=== PATIENT | female | born 1990 | race American Indian/Alaskan Native ===

== ENCOUNTER 2021-02-05 11:22 | Emergency (ER) | payer OTHER ==
[~2021-02-05] VITALS: Ht 165.1 cm; Wt 90.7 kg
[~2021-02-05 11:22] MED LIST: PRENATAL MULTI1 EACH PO
[2021-02-05] MEDS ORDERED: FLONASE ALLERG9.9 ML NAS (11:34)
[2021-02-05] MEDS ORDERED: ALLEGRA-D 12 H1 EACH PO (11:35)
== END 2021-02-05 14:18 | disposition home or self-care (01) ==
LOC: ED 11:22
DX: S50.01XA Contusion of right elbow, initial encounter (principal); W22.8XXA Striking against or struck by other objects, initial encounter
CPT/HCPCS: 73080; 99283-25

== ENCOUNTER 2022-10-10 13:06 | Emergency (ER) | payer OTHER ==
[~2022-10-10] VITALS: Ht 165.1 cm; Wt 90.7 kg
[~2022-10-10 13:06] MED LIST changes: +ALLEGRA-D 12 H1 EACH PO; +FLONASE ALLERG9.9 ML NAS
== END 2022-10-10 14:26 | disposition home or self-care (01) ==
LOC: ED 13:06
DX: O9A.213 Injury, poisoning and certain other consequences of external causes complicating pregnancy, third trimester (principal); T75.89XA Other specified effects of external causes, initial encounter; Z3A.29 29 weeks gestation of pregnancy
CPT/HCPCS: 59025; 99282

== ENCOUNTER 2022-12-05 16:47 | Inpatient (IN) | payer OTHER ==
[~2022-12-05] VITALS: Ht 163.8 cm; Wt 107.5 kg
--- NOTE | ~2022-12-05 | OR ---
[facility] [address] [place], [place] [address] Draft DATE OF OPERATION: 12/06/2022 SURGEON: Solo Sifuentes DO PROCEDURE: Primary low-transverse section and cystoscopy. G[employer]ION [employer]ANT OPERATOR: Leonardo Villegas MD. PREOPERATIVE DIAGNOSES: Non-reassuring heart tones, intolerance to labor, preeclampsia, history of preeclampsia with severe features, 38 weeks gestation. POSTOPERATIVE DIAGNOSES: Term , delivered occiput posterior position, preeclampsia, history of preeclampsia with severe features. ANESTHESIA: Spinal. BLOOD LOSS: 650 mL. COMPLICATION: Uterine extension requiring cystoscopy. FINDINGS: Viable term male in the left occiput posterior in the flexed position and 7 pounds 1 ounce with Apgars of 2, 8 and 8 at 1, 5 and 10 minutes respectively. Normal-appearing bilateral tubes and ovaries. Bladder intact. No injury to the dome. Bubble present. Bilateral ureteral efflux visualized. INDICATIONS: The patient is a 32-year-old, G3, P0-1-1-1 at 38 weeks gestation. She was admitted at 37 and 6 weeks gestation with gestational hypertension. Admission labs were significant for preeclampsia with a protein creatinine ratio of 0.33. She was cesia regularly, received an epidural for pain management. Amniotomy was performed yielding large amount of clear fluid. After that time, she continued to make progress but began having variable and occasional late heart rate decelerations. Numerous attempts PATIENT NAME: FLASH ZIMMERMANSONAL Martinez OPERATIVE REPORT DATE OF : [birth year] REPORT #: [id number] PHYSICIAN: SOLO SIFUENTES DO PCP: [facility] REPORT IS CONFIDENTIAL AND NOT TO BE RELEASED WITHOUT AUTHORIZATION [facility] [address] [place], [place] [address] Draft were made repositioning with intermittent improvement in heart rate status until she reached 9 cm after which she failed continued dilate and status once again became non-reassuring. Risks, benefits, alternatives of the delivery were discussed and patient elected to proceed. PROCEDURE IN DETAIL: The patient was given 2 g Ancef IV and 500 mg azithromycin IV, was taken back to the operating room. Epidural catheter was removed. Spinal anesthesia was placed. Internal monitors were removed. She was prepped and draped in normal sterile fashion. Lugo catheter was already in place. Adequate anesthesia was confirmed. A Pfannenstiel incision was made with a scalpel and carried down to the underlying layer of fascia with Bovie cautery. Fascia was nicked in midline, extended laterally with Callejas scissors. Inferior margin of fascia was grasped and elevated with Jessie clamps. Underlying rectus muscles dissected off bluntly and sharply with Callejas scissors. Inferior margin was released. Jessie clamps used to grasp the superior margin of fascia which was elevated and underlying rectus muscle was dissected off bluntly and sharply with Callejas scissors. Superior margin was released. The peritoneum was entered bluntly and peritoneal incision was extended laterally with blunt traction. Shaun retractor was placed. Hysterotomy was made with a scalpel. Uterus was entered bluntly, digitally and hysterotomy was extended laterally with gentle, digital, superior and inferior traction. 's head was noted to be in the occiput posterior position in a deflexed manner and was elevated with significant difficulty to the level of hysterotomy requiring an office assistant to elevate the head vaginally to allow for delivery of the head through the hysterotomy. Anterior posterior shoulder delivered easily along with remainder of the infant's body, which upon delivery cord was immediately clamped and cut. Baby was handed to waiting nursery team including appliance repairer respiratory therapist present in OR for resuscitation. Cord gases were collected and cord blood was collected for type and Joe. Placenta was manually extracted and submitted for pathology. Uterus was cleared of clots and debris. Bilateral extensions of the hysterotomy were noted. Right extension was repaired with 0 Vicryl in a running locked fashion with excellent visualization the entire time. Left extension was similarly repaired with 0 Vicryl in a running locked fashion with excellent visualization. Hysterotomy was then closed with 0 Monocryl in a double-layer closure first in a running locked fashion. Secondly, in an imbricating manner starting at the extension, the left extension working around to the right extension following imbrication. Excellent hemostasis was noted. Pelvis was suction irrigated. Trisha hemostatic agent was applied to the raw peritoneal surface at each apex. Shaun retractor was removed. Peritoneum was closed in a running fashion with 2-0 Vicryl. Rectus muscle was reapproximated at midline with 0 Vicryl in simple interrupted manner x3. Rectus muscle was suction irrigated with warm sterile saline. Perforating vessels were cauterized with Bovie cautery. Fascia was closed with 0 Vicryl in a running fashion working first from right apex to midline and from left apex to midline meeting in the middle with excellent hemostasis and reapproximation noted. PATIENT NAME: KERRY ZIMMERMAN OPERATIVE REPORT DATE OF : [birth year] REPORT #: [id number] PHYSICIAN: SOLO SIFUENTES DO PCP: [facility] REPORT IS CONFIDENTIAL AND NOT TO BE RELEASED WITHOUT AUTHORIZATION [address], [place] [address] Draft Subcutaneous layer was suction irrigated with warm sterile saline. Perforating vessels were cauterized with Bovie cautery and subcutaneous layer was reapproximated with 3-0 Vicryl in a running fashion. Skin was closed with skin clips. Sponge and instrument counts were correct x2 and attention was turned to cystoscopy. The patient was positioned in a frog-leg position. Lugo catheter was removed. Betadine was used to prep the urethra and flexible cystoscope was inserted without difficulty. Bladder was surveyed with normal findings as noted above, including intact dome and trigone and bilateral ureteral efflux. Cystoscope was removed. Lugo catheter was replaced. Uterus was Crede'd and noted to be very firm and free of clots consistent with having received TXA 1 g shortly after time of delivery. The patient remained in the OR for completion of tap blocks and baby remained in the OR with mother. DO FRANCIA Kelley/ELINA /[id number] Copies: ~ PATIENT NAME: KERRY ZIMMERMAN OPERATIVE REPORT DATE OF : [birth year] REPORT #: [id number] PHYSICIAN: SOLO SIFUENTES DO PCP: [facility] REPORT IS CONFIDENTIAL AND NOT TO BE RELEASED WITHOUT AUTHORIZATION
--- NOTE | 2022-12-05 21:55 | PR ---
[facility] [address] [facility] [place], [place] [address] Signed Progress Notes IP Datetime Report Generated by CPN: 12/05/2022 21:55 PROGRESS NOTES: [id number] Impression: Reassuring Heart Rate Procedures: Artificial ROM; Sterile Vag Exam Plan: Continue Present Management VITAL SIGNS: [id number] EXAM: [id number] Dilatation: 4.0 Effacement: 85 Station: -2 Contractions: not yet tracing MEMBRANES: [id number] Membranes Status: Ruptured Comments: Mostly comfortable with epidural, small window in left lower abdomen where she is feeling contractions AROM as noted - plan recheck in 2h or sooner if indicated. Discussed if no cervical change after 2h then may recommend low-dose pitocin FETUS A: [id number] FHR Baseline: 130 Variability: Moderate 6-25bpm Accelerations: 15X15 Decelerations: None FHR Category: Category I Presentation: Vertex Comments on Fetus A: No evidence of acidemia FETUS B: [id number] Signing Physician: Solo Sifuentes DO Copies: ~ *Electronically Signed* 12/05/22 2155 SOLO SIFUENTES DO PATIENT NAME: KERRY ZIMMERMAN PROGRESS NOTE DATE OF : [birth year] PHYSICIAN: SOLO SIFUENTES DO RPT #: [id number] REPORT IS CONFIDENTIAL AND NOT TO BE RELEASED WITHOUT AUTHORIZATION
--- NOTE | 2022-12-05 23:15 | PR ---
[facility] [address] [place], [place] [address] Signed Progress Notes IP Datetime Report Generated by CPN: 12/05/2022 23:15 PROGRESS NOTES: [id number] Impression: Normal Progression of Labor Procedures: Intrauterine Pressure Catheter; Scalp Electrode; Sterile Vag Exam Plan: Anticipate Vaginal Delivery VITAL SIGNS: [id number] EXAM: [id number] Dilatation: 6.0 Effacement: 95 Station: -2 Contractions: not yet tracing MEMBRANES: [id number] Membranes Status: Ruptured Comments: Risks, benefits, alternatives to internal monitors discussed with Pt and FOB, at bedside, and they elected to proceed. IUPC and FSE placed without difficulty. Bloody show noted, consistent with labor progress. Pt repositioned to high fowlers. FETUS A: [id number] FHR Baseline: 130 Variability: Moderate 6-25bpm Accelerations: 15X15 Decelerations: None FHR Category: Category I Presentation: Vertex Comments on Fetus A: No evidence of acidemia FETUS B: [id number] Signing Physician: Solo Sifuentes DO Copies: ~ *Electronically Signed* 12/05/22 2296 SOLO SIFUENTES DO PATIENT NAME: KERRY ZIMMERMAN PROGRESS NOTE DATE OF : [birth year] PHYSICIAN: SOLO SIFUENTES DO RPT #: [id number] REPORT IS CONFIDENTIAL AND NOT TO BE RELEASED WITHOUT AUTHORIZATION
--- NOTE | 2022-12-06 00:15 | PR ---
[facility] [address] [place], [place] [address] Signed Progress Notes IP Datetime Report Generated by CPN: 12/06/2022 00:15 PROGRESS NOTES: [id number] Impression: Normal Progression of Labor Procedures: Intrauterine Pressure Catheter; Scalp Electrode; Sterile Vag Exam Plan: Anticipate Vaginal Delivery VITAL SIGNS: [id number] EXAM: [id number] Dilatation: 8.0 Effacement: 95 Station: -2 Contractions: not yet tracing MEMBRANES: [id number] Membranes Status: Ruptured Comments: Risks, benefits, alternatives to internal monitors discussed with Pt and FOB, at bedside, and they elected to proceed. IUPC and FSE placed without difficulty. Bloody show noted, consistent with labor progress. Pt repositioned to high fowlers. FETUS A: [id number] FHR Baseline: 130 Variability: Moderate 6-25bpm Accelerations: 15X15 Decelerations: None FHR Category: Category I Presentation: Vertex Comments on Fetus A: No evidence of acidemia FETUS B: [id number] Signing Physician: Solo Sifuentes DO Copies: ~ *Electronically Signed* 12/06/22 0015 SOLO SIFUENTES DO PATIENT NAME: KERRY ZIMMERMAN PROGRESS NOTE DATE OF : [birth year] PHYSICIAN: SOLO SIFUENTES DO RPT #: [id number] REPORT IS CONFIDENTIAL AND NOT TO BE RELEASED WITHOUT AUTHORIZATION
--- NOTE | 2022-12-06 02:44 | PR ---
[facility] [address] [facility] [place], [place] [address] Signed Progress Notes IP Datetime Report Generated by CPN: 12/06/2022 02:44 PROGRESS NOTES: [id number] Impression: Normal Progression of Labor Procedures: Intrauterine Pressure Catheter; Scalp Electrode; Sterile Vag Exam Plan: Anticipate Vaginal Delivery VITAL SIGNS: [id number] EXAM: [id number] Dilatation: 9.0 Effacement: 90 Station: -2 Contractions: not yet tracing MEMBRANES: [id number] Membranes Status: Ruptured Comments: Continuing to progress Continue repositioning as needed FETUS A: [id number] FHR Baseline: 130 Variability: Moderate 6-25bpm Accelerations: 15X15 Decelerations: None FHR Category: Category I Presentation: Vertex Comments on Fetus A: No evidence of acidemia FETUS B: [id number] Signing Physician: Solo Sifuentes DO Copies: ~ *Electronically Signed* 12/06/22 0244 SOLO SIFUENTES DO PATIENT NAME: KERRY ZIMMERMAN PROGRESS NOTE DATE OF : [birth year] PHYSICIAN: SOLO SIFUENTES DO [facility] #: [id number] REPORT IS CONFIDENTIAL AND NOT TO BE RELEASED WITHOUT AUTHORIZATION
--- NOTE | 2022-12-06 05:01 | PR ---
[facility] [address] [place], [place] [address] Signed Progress Notes IP Datetime Report Generated by KRANTHI: 12/06/2022 05:01 PROGRESS NOTES: [id number] Impression: Normal Progression of Labor Procedures: Intrauterine Pressure Catheter; Scalp Electrode; Sterile Vag Exam Plan: Anticipate Vaginal Delivery VITAL SIGNS: [id number] EXAM: [id number] Dilatation: 9.0 Effacement: 90 Station: -1 Contractions: not yet tracing MEMBRANES: [id number] Membranes Status: Ruptured Comments: Reviewed labor course with pt; cervix is beginning to feel edematous, contractions are not adequate, but starting pitocin is not appropriate with category 2 strip. Risks, benefits, alternatives to were discussed at length including need for TOLAC referral or repeat here. Initially discussed pitocin, then variable decelerations resumed. delivery recommended for nonreassuring heart tones. FETUS A: [id number] FHR Baseline: 130 Variability: Moderate 6-25bpm Accelerations: 15X15 Decelerations: None FHR Category: Category I Presentation: Vertex Comments on Fetus A: No evidence of acidemia FETUS B: [id number] Signing Physician: Solo Sifuentes DO Copies: ~ *Electronically Signed* 12/06/22 0501 SOLO SIFUENTES DO PATIENT NAME: KERRY ZIMMERMAN PROGRESS NOTE DATE OF : [birth year] PHYSICIAN: SOLO SIFUENTES DO RPT #: [id number] REPORT IS CONFIDENTIAL AND NOT TO BE RELEASED WITHOUT AUTHORIZATION
--- NOTE | 2022-12-07 11:09 | PR ---
[facility] [address] [place], [place] [address] Signed PP Progress Notes Datetime Report Generated by KRANTHI: 12/07/2022 11:09 SUBJECTIVE: [id number] Pain: Within Normal Limits Nausea/Vomiting: Denies Flatus: Yes Bowel Movement: No Vital Signs: [id number] Vital Signs: Reviewed; Within Normal Limits Cardiovascular: Normal Respiratory: Normal Abdomen/Uterus: Normal Lochia: Normal Extremities: Normal Incision: Normal Progress: Normal Exam Comments: Sitting up in bed NAD RRR No dyspnea/ retractions Abd:SNTND, FFBU Incision: dressing in place, no strikethrough Ext: 2+ BLLE, SCDs on and squeezing IMPRESSION/PLAN/PROCEDURES: [id number] Impression: Normal Progression Plan: Continue Present Management Progress Notes: Pt is a 32 yo POD#1 s/p PLTCS -WBC 28.9 from 19.0 on admission; recheck in 12h. Afebrile. -admitted for MIOL for gHTN; PC ratio 0.33 on admission. No severe features, normotensive since midnight, now diuresing well -postop nausea/vomiting now resolved -oconnell removed, +spontaneous void x 2 Progressing well postop. Plan repeat CBC for leukocytosis, as above. Anticipate continued diuresis. Pt to notify RN if feeling feverish/ chills. Continue postop/ care. Anticipate possible DC to home tomorrow, otherwise Thursday. Signing Physician: Solo Sifuentes DO *Electronically Signed* 12/07/22 1109 SOLO SIFUENTES DO PATIENT NAME: KERRY ZIMMERMAN PROGRESS NOTE DATE OF : [birth year] PHYSICIAN: SOLO SIFUENTES DO RPT #: [id number] REPORT IS CONFIDENTIAL AND NOT TO BE RELEASED WITHOUT AUTHORIZATION [facility] [address] [address] [place], [place] [address] Signed Copies: ~ *Electronically Signed* 12/07/221108 SOLO SIFUENTES DO PATIENT NAME: KERRY ZIMMERMAN PROGRESS NOTE DATE OF : [birth year] PHYSICIAN: SOLO SIFUENTES DO RPT #: [id number] REPORT IS CONFIDENTIAL AND NOT TO BE RELEASED WITHOUT AUTHORIZATION
--- NOTE | 2022-12-08 08:56 | PR ---
[facility] [address] [place], [place] [address] Signed PP Progress Notes Datetime Report Generated by KRANTHI: 12/08/2022 08:55 SUBJECTIVE: [id number] Pain: Within Normal Limits Nausea/Vomiting: Denies Flatus: Yes Bowel Movement: Yes Vital Signs: [id number] Vital Signs: Reviewed Cardiovascular: Normal Respiratory: Normal Abdomen/Uterus: Normal Lochia: Normal Vulva/Perineum: Normal Breasts: Normal Extremities: Normal Incision: Normal Progress: Normal Exam Comments: NAD RRR No dyspnea/ retractions Abd SNTND, FFBU Incision c/d/i Ext: 2+ BLLE edema, neg Lennox's BL IMPRESSION/PLAN/PROCEDURES: [id number] Impression: Normal Progression Plan: Continue Present Management; Discharge Progress Notes: POD#2 s/p PLTCS for NRFHT/ intolerance to labor/ occiput posterior -Leukocytosis resolved -Hgb 9.9 -Normotensive x24 h except for one elevated, non-severe BP at 0416 this am, asymptomatic, diuresing well -ambulating, voiding, tolerating regular diet, +BM, , pain well-controlled with orals/ice/binder Anticipate DC to home today with staple removal and BP check in office in 3d Signing Physician: Solo Sifuentes DO *Electronically Signed* 12/08/22 0855 SOLO SIFUENTES DO PATIENT NAME: KERRY ZIMMERMAN PROGRESS NOTE DATE OF : [birth year] PHYSICIAN: SOLO SIFUENTES DO RPT #: [id number] REPORT IS CONFIDENTIAL AND NOT TO BE RELEASED WITHOUT AUTHORIZATION [address] [address] Signed Copies: ~ *Electronically Signed* 12/08/22 0855 SOLO SIFUENTES DO PATIENT NAME: KERRY ZIMMERMAN PROGRESS NOTE DATE OF : [birth year] PHYSICIAN: SOLO SIFUENTES DO RPT #: [id number] REPORT IS CONFIDENTIAL AND NOT TO BE RELEASED WITHOUT AUTHORIZATION
--- NOTE | 2022-12-10 15:50 | PATH ---
[facility] [address] [place], [place] [address] Signed SPECIMEN(S): A PLACENTA SPECIMEN SOURCE: A. PLACENTA CLINICAL HISTORY: intolerance to labor. III, now G3 PIII. Gestational age: 38. Infants weight: 7 lbs. score: 2/9. Rh: +. (Rhogam no). Antibody screen: Negative. Rubella: RPR: NR. Hepatitis screen: Negative. GBS: +. Specific issues of concern: Pre-eclampsia, intolerance to labor. FINAL PATHOLOGIC DIAGNOSIS: Placenta: - Mature 523 gm placenta with three-vessel umbilical cord. - Diffuse acute chorioamnionitis and funisitis. - Focal prominent umbilical vasculitis. - Patchy placental disc infarction comprising approximately 25% of placental disc volume. - Focal mild fibromuscular sclerosis within intermediate-sized vessels. JVR:[facility]:C2NR MICROSCOPIC EXAMINATION: Histologic sections of all submitted blocks are examined by light microscopy. These findings, together with the gross examination, support the pathologic diagnosis. GROSS DESCRIPTION: The specimen, labeled and designated "Miller Zimmerman, placenta," is received fresh and placed in formalin and consists of a gardner discoid placenta with the following parameters: Umbilical cord: Insertion eccentric, measurement 19.6 x 1.5 cm; trivascular. Cord coiling index (per 10 cm): One. Lesions: Not grossly identified. Membranes: Insertion site: Marginal, pink and translucent. Intact. Other: Not grossly identified. Chorionic Plate: Normal radiating vascular pattern, blue-purple and shiny. Lesions: Not grossly identified. Other: Not grossly identified. Maternal Surface: Normal cotyledons, intact. Lesions: Not grossly identified. Measurement: 19.5 x 18.3 x 3.0 cm. 523 g. Cut Surface: Maroon and spongy. Lesions: Diffuse areas of a white, rubbery, irregular fibrous tissue that involves approximately 25% of the placental PATIENT NAME: KERRY ZIMMERMAN PATHOLOGY DATE OF : 89 REPORT #: [id number] PHYSICIAN: ASHER PITTMAN PCP: [facility] REPORT IS CONFIDENTIAL AND NOT TO BE RELEASED WITHOUT AUTHORIZATION [facility] [address] [place], [place] [address] Signed parenchyma. Also present is one area of red laminated consolidation that is 2.1 cm in greatest dimension. Basal plate fibrin 0.1 cm in thickness. Other Findings: Multilobed placental disc with an attached succenturiate lobe, that is 6.0 x 3.7 x 0.9 cm. Cassette Summary: (A1) membranes and umbilical cord. (A2) area of consolidation in succenturiate lobe. (A3) irregular fibrous tissue. (A4) placenta parenchyma. FB (under the direct supervision of a pathologist) The Gross Description was prepared using a voice recognition system. The report was reviewed for accuracy; however, sound-alike word errors, addition and/or deletions may occur. If there is any question about this report, please contact Client Services. PERFORMING LABORATORY: The technical component was performed by [facility], [address] [place] [id number] (CLIA# [id number]). Professional interpretation was performed by [facility], [address] [place] [address], [place] [address] (CLIA#: [id number]). Diagnostician: Sancho Pham MD Pathologist Electronically Signed 12/10/2022 Copies: ~ PATIENT NAME: KERRY ZIMMERMAN PATHOLOGY DATE OF : [birth year] REPORT #: [id number] PHYSICIAN: ASHER PITTMAN [facility] REPORT IS CONFIDENTIAL AND NOT TO BE RELEASED WITHOUT AUTHORIZATION
== END 2022-12-08 10:29 | disposition home or self-care (01) | DRG 788 ==
LOC: FBC 16:47
PROVIDERS: ADMIT Obstetrics & Gynecology; ATTEND Obstetrics & Gynecology
PROC: 10H07YZ Insertion of Other Device into Products of Conception, Via Natural or Artificial Opening (ICD-10-PCS; 2022-12-05)
PROC: 0UQ90ZZ Repair Uterus, Open Approach (ICD-10-PCS; 2022-12-06)
PROC: 0TJB8ZZ Inspection of Bladder, Via Natural or Artificial Opening Endoscopic (ICD-10-PCS; 2022-12-06)
PROC: 10D00Z1 Extraction of Products of Conception, Low, Open Approach (ICD-10-PCS; principal; 2022-12-06 05:23)
DX: O14.04 Mild to moderate pre-eclampsia, complicating childbirth (principal); O99.824 Streptococcus B carrier state complicating childbirth; O76 Abnormality in fetal heart rate and rhythm complicating labor and delivery; Z3A.38 38 weeks gestation of pregnancy; Z67.10 Type A blood, Rh positive; Z20.822 Contact with and (suspected) exposure to COVID-19; Z37.0 Single live birth
CPT/HCPCS: 01961; 36415; 76942; 80053; 82570; 82803; 83615; 84156; 84550; 85025; 85027; 86850; 86900; 86901; 87502; A9270; C9803; J0456; J0690; J1100; J1650; J1885; J2274; J2370; J2405; J2540; J2590; J2765; J2795; J3010; J3105; J7121; U0003